=== PATIENT | female | born 1975 | race Caucasian/White ===

== ENCOUNTER → 2016-05-05 | Outpatient (REF) | payer BC | LOC: M SFHCLERA 09:28 | PROVIDERS: ATTEND Nurse Practitioner Family | DX: J06.9 Acute upper respiratory infection, unspecified (principal) ==

== ENCOUNTER → 2016-06-16 | Outpatient (REF) | payer BC | LOC: M SFHCLERA 12:42 | PROVIDERS: ATTEND Family Medicine | DX: R30.0 Dysuria (principal) ==

== ENCOUNTER → 2018-01-01 | Outpatient (CLI) | payer BC | LOC: M SLEEP HO 11:25 | DX: G47.33 Obstructive sleep apnea (adult) (pediatric) (principal) | CPT/HCPCS: G0399 ==

== ENCOUNTER → 2018-03-30 | Outpatient (REF) | payer BC ==
[2018-03-30 12:34] LABS: HEMATOCRIT 37.3 % (36.0-47.0)
[2018-03-30 12:50] LABS: PERCENT SATURATION 10.5 % (13.2-45.0)
== END ==
LOC: M LAB REF 12:08
PROVIDERS: ATTEND Nurse Practitioner Adult Health
DX: D64.9 Anemia, unspecified (principal)

== ENCOUNTER → 2019-06-06 | Outpatient (REF) | payer BC ==
[2019-06-06 17:49] LABS: HEMATOCRIT 36.2 % (36.0-47.0)
[2019-06-06 18:18] LABS: PERCENT SATURATION 9.7 % (13.2-45.0); PHOSPHORUS LEVEL 4.2 MG/DL (2.5-4.9)
== END ==
LOC: M LAB REF 16:40
PROVIDERS: ATTEND Nurse Practitioner Adult Health
DX: Z98.84 Bariatric surgery status (principal)

== ENCOUNTER → 2020-05-29 | Outpatient (REF) | payer BC ==
[2020-05-29 17:20] LABS: PERCENT SATURATION 2.1 % (13.2-45.0)
[2020-05-29 17:24] LABS: FOLATE 11.4 NG/ML
== END ==
LOC: M LAB REF 16:14
PROVIDERS: ATTEND Internal Medicine
DX: Z98.84 Bariatric surgery status (principal)

== ENCOUNTER → 2020-06-15 | Outpatient (REF) | payer BC ==
[2020-06-15 13:06] LABS: PERCENT SATURATION 2.7 % (13.2-45.0)
== END ==
LOC: M LAB REF 12:06
PROVIDERS: ATTEND Internal Medicine
DX: D50.9 Iron deficiency anemia, unspecified (principal)

== ENCOUNTER → 2022-02-04 | Outpatient (REF) | payer BC ==
[2022-02-04 14:10] LABS: FERRITIN 1.9 NG/ML (7.3-270.7)
[2022-02-04 14:15] LABS: PERCENT SATURATION 1.6 % (13.2-45.0)
== END ==
LOC: M LAB REF 12:15
PROVIDERS: ATTEND Internal Medicine
DX: D50.9 Iron deficiency anemia, unspecified (principal)

== ENCOUNTER 2022-02-16 08:07 | Outpatient (CLI) | payer BC ==
[~2022-02-16 08:07] MED LIST: IRON SUCROSE 25 MG in NS 23.75 ML IV ONE; IRON SUCROSE 475 MG in NS 250 ML IV ONE
[2022-02-16 08:10] VITALS: BP 139/70
[2022-02-16 10:00] VITALS: BP 143/67
[2022-02-16 11:00] VITALS: BP 151/77
[2022-02-16 12:00] VITALS: BP 157/80
[2022-02-16 13:00] VITALS: BP 169/72
== END 2022-02-16 14:45 | disposition home or self-care (01) ==
LOC: M INFU 08:07
PROVIDERS: ATTEND Internal Medicine
DX: D50.9 Iron deficiency anemia, unspecified (principal); Z91.040 Latex allergy status
CPT/HCPCS: 96365; 96366; J1756

== ENCOUNTER → 2022-03-17 | Outpatient (REF) | payer BC | LOC: M LAB REF 12:04 | PROVIDERS: ATTEND Internal Medicine | DX: D50.9 Iron deficiency anemia, unspecified (principal) ==

== ENCOUNTER → 2023-09-18 | Outpatient (REF) | payer BC ==
[~2023-09-18] MED LIST changes: -IRON SUCROSE 25 MG in NS 23.75 ML IV ONE; -IRON SUCROSE 475 MG in NS 250 ML IV ONE; +SYNT150T PO
[2023-09-18 18:47] LABS: PERCENT SATURATION 1.6 % (13.2-45.0)
[2023-09-18 18:49] LABS: FOLATE 20.1 NG/ML (>5.4)
== END ==
LOC: M LAB REF 16:57
PROVIDERS: ATTEND Internal Medicine
DX: D50.9 Iron deficiency anemia, unspecified (principal); Z98.84 Bariatric surgery status

== ENCOUNTER → 2023-09-21 | Outpatient (CLI) | payer BC | LOC: M LAB 16:55 | PROVIDERS: ATTEND Internal Medicine | DX: D50.9 Iron deficiency anemia, unspecified (principal) ==

== ENCOUNTER 2023-09-22 11:31 | Outpatient (CLI) | payer BC ==
[2023-09-22] MEDS ORDERED: diphenhydrAMINE 25MG CAP PO ONE (12:00)
[2023-09-22] MEDS ORDERED: ACETAMINOPHEN TAB 650MG DOSE (2X325MG) PO ONE (12:00)
[2023-09-22] MEDS ORDERED: diphenhydrAMINE 25MG CAP As Ordered ONE (12:08)
[2023-09-22] MEDS ORDERED: ACETAMINOPHEN TAB 650MG DOSE (2X325MG) As Ordered ONE (12:09)
== END 2023-09-22 16:15 ==
LOC: M INFU 11:31
PROVIDERS: ATTEND Internal Medicine
DX: D50.9 Iron deficiency anemia, unspecified (principal); Z91.040 Latex allergy status
CPT/HCPCS: 36430; P9016

== ENCOUNTER 2023-09-27 14:24 | Outpatient (CLI) | payer BC ==
[~2023-09-27] VITALS: Ht 170.2 cm; Wt 88.6 kg
[~2023-09-27 14:24] MED LIST changes: +ALBUTEROL SULFATE 2.5MG/0.5ML INH NEB SOLN INH PRN; +EPINEPHrine INJ 1 MG/ML 1ML AMP IM PRN; +diphenhydrAMINE 50MG/ML VIAL IV PRN; +methylPREDNISolone 125MG 2ML VIAL IV PRN
[2023-09-27] MEDS ORDERED: NS 1,000 ML IV SCH (14:30)
[2023-09-27 14:45] VITALS: BP 150/79; O2SAT 100
[2023-09-27] MEDS: FERRIC CARBOXYMALTOSE INJ 750 MG in NS 250 ML (>50kg) IV ONE (14:45)
[2023-09-27 15:58] VITALS: BP 172/79; O2SAT 98
== END 2023-09-27 16:00 ==
LOC: M INFU 14:24
PROVIDERS: ATTEND Internal Medicine
DX: D50.9 Iron deficiency anemia, unspecified (principal); Z91.040 Latex allergy status
CPT/HCPCS: 96365; J1439

== ENCOUNTER 2023-10-11 13:30 | Outpatient (CLI) | payer BC ==
[~2023-10-11] VITALS: Ht 170.2 cm; Wt 84.0 kg
[2023-10-11 13:30] VITALS: BP 143/67; O2SAT 98
[2023-10-11] MEDS: FERRIC CARBOXYMALTOSE INJ 750 MG in NS 250 ML (>50kg) IV ONE (13:43)
[2023-10-11] MEDS ORDERED: NS 1,000 ML IV SCH (14:30)
[2023-10-11 15:15] VITALS: BP 132/66; O2SAT 98
== END 2023-10-11 15:15 ==
LOC: M INFU 13:30
PROVIDERS: ATTEND Internal Medicine
DX: D50.9 Iron deficiency anemia, unspecified (principal); Z91.040 Latex allergy status
CPT/HCPCS: 96365; J1439

== ENCOUNTER → 2023-12-19 | Outpatient (REF) | payer BC ==
[~2023-12-19] MED LIST changes: -ALBUTEROL SULFATE 2.5MG/0.5ML INH NEB SOLN INH PRN; -EPINEPHrine INJ 1 MG/ML 1ML AMP IM PRN; -diphenhydrAMINE 50MG/ML VIAL IV PRN; -methylPREDNISolone 125MG 2ML VIAL IV PRN
[2023-12-19 18:58] LABS: PERCENT SATURATION 11.4 % (13.2-45.0)
== END ==
LOC: M LAB REF 17:52
PROVIDERS: ATTEND Internal Medicine
DX: D50.9 Iron deficiency anemia, unspecified (principal)

== ENCOUNTER → 2024-05-08 | Outpatient (REF) | payer BC ==
[2024-05-08 14:15] LABS: PERCENT SATURATION 3.2 % (13.2-45.0)
== END ==
LOC: M LAB REF 13:16
PROVIDERS: ATTEND Internal Medicine
DX: D50.9 Iron deficiency anemia, unspecified (principal)

== ENCOUNTER 2024-05-27 12:49 | Outpatient (CLI) | payer BC ==
[~2024-05-27] VITALS: Ht 168.9 cm; Wt 88.6 kg
[~2024-05-27 12:49] MED LIST changes: +ALBUTEROL SULFATE 2.5MG/0.5ML INH NEB SOLN INH PRN; +EPINEPHrine INJ 1 MG/ML 1ML AMP IM PRN; +diphenhydrAMINE 50MG/ML VIAL IV PRN; +methylPREDNISolone 125MG 2ML VIAL IV PRN
[2024-05-27 13:05] VITALS: BP 152/79; O2SAT 99
[2024-05-27] MEDS: FERRIC CARBOXYMALTOSE 750 MG (VIAL MATE) IN 100ML NS IV ONE (13:17)
[2024-05-27 14:50] VITALS: BP 166/81; O2SAT 97
== END 2024-05-27 13:55 ==
LOC: M INFU 12:49
PROVIDERS: ATTEND Internal Medicine
DX: D50.9 Iron deficiency anemia, unspecified (principal); Z91.040 Latex allergy status
CPT/HCPCS: 96365; J1439

== ENCOUNTER 2024-06-03 12:40 | Outpatient (CLI) | payer BC ==
[~2024-06-03] VITALS: Ht 167.6 cm; Wt 86.4 kg
[2024-06-03 12:40] VITALS: BP 150/83; O2SAT 97
[2024-06-03] MEDS: FERRIC CARBOXYMALTOSE 750 MG (VIAL MATE) IN 100ML NS IV ONE (12:55)
[2024-06-03] MEDS ORDERED: NS (Normal Saline) 0.9% 1,000 ML IV SCH (13:00)
[2024-06-03 13:05] VITALS: BP 132/88; O2SAT 98
[2024-06-03 13:40] VITALS: BP 146/78; O2SAT 98
== END 2024-06-03 13:40 ==
LOC: M INFU 12:40
PROVIDERS: ATTEND Internal Medicine
DX: D50.9 Iron deficiency anemia, unspecified (principal); Z91.040 Latex allergy status; Z88.8 Allergy status to other drugs, medicaments and biological substances
CPT/HCPCS: 96365; J1439

== ENCOUNTER → 2024-06-07 | Outpatient (REF) | payer BC ==
[~2024-06-07] MED LIST changes: -ALBUTEROL SULFATE 2.5MG/0.5ML INH NEB SOLN INH PRN; -EPINEPHrine INJ 1 MG/ML 1ML AMP IM PRN; -diphenhydrAMINE 50MG/ML VIAL IV PRN; -methylPREDNISolone 125MG 2ML VIAL IV PRN
== END ==
LOC: M LAB REF 13:12
PROVIDERS: ATTEND Surgery
DX: L72.12 Trichodermal cyst (principal)

== ENCOUNTER → 2025-02-21 | Outpatient (CLI) | payer BC ==
[~2025-02-21] MED LIST changes: +PRED20TA PO
[2025-02-21 11:50] LABS: PLATELET COUNT, AUTOMATED 420 10^3/uL (150-450)
== END ==
LOC: M PLALAB 08:39
PROVIDERS: ATTEND Obstetrics & Gynecology
DX: N93.9 Abnormal uterine and vaginal bleeding, unspecified (principal)

== ENCOUNTER → 2025-02-23 | Outpatient (CLI) | payer BC | LOC: M LAB 10:42 | PROVIDERS: ATTEND Family Medicine | DX: D64.9 Anemia, unspecified (principal) ==

== ENCOUNTER 2025-02-24 12:06 | Outpatient (CLI) | payer BC ==
[~2025-02-24] VITALS: Ht 170.2 cm; Wt 97.3 kg
[~2025-02-24 12:06] MED LIST changes: -PRED20TA PO
[2025-02-24 12:30] VITALS: BP 175/78; O2SAT 100
[2025-02-24 13:42] VITALS: BP 166/79; TEMP 97; O2SAT 99
[2025-02-24 15:34] VITALS: BP 153/76; TEMP 98.1; O2SAT 98
[2025-02-24 16:20] VITALS: BP 154/84; TEMP 98.4; O2SAT 99
[2025-02-24 16:55] VITALS: BP 150/78; O2SAT 100
[2025-02-24] MEDS ORDERED: PRED20TA PO (22:55)
== END 2025-02-24 16:55 | disposition home or self-care (01) ==
LOC: M INFU 12:06
PROVIDERS: ATTEND Internal Medicine
DX: D64.9 Anemia, unspecified (principal); Z91.040 Latex allergy status
CPT/HCPCS: 36430; P9016

== ENCOUNTER 2025-02-24 18:46 | Emergency (ER) | payer BC ==
[~2025-02-24] VITALS: Ht 170.2 cm; Wt 92.2 kg
[2025-02-24] MEDS: diphenhydrAMINE 50 MG/ML VIAL IV ONE (19:50)
[2025-02-24] MEDS: NS (Normal Saline) 0.9% 1,000 ML IV ONE (19:51)
[2025-02-24] MEDS: ACETAMINOPHEN *IV* 1,000 MG in IV 1 EA IV ONE (19:51)
[2025-02-24 20:20] LABS: C REACTIVE PROTEIN QUANTITATIV < 0.50 MG/DL (<1.0); PLATELET COUNT, AUTOMATED 302 10^3/uL (150-450)
[2025-02-24 20:21] LABS: CALCIUM LEVEL 8.7 MG/DL (8.5-10.1); CARBON DIOXIDE LEVEL 24 MMOL/L (20-31); CHLORIDE LEVEL 105 MMOL/L (98-107); CREATININE FOR GFR 0.75 MG/DL (0.55-1.30); GLOMERULAR FILTRATION RATE > 90.0 (>58); POTASSIUM SERUM 3.6 MMOL/L (3.5-5.1); SODIUM LEVEL 140 MMOL/L (136-145)
[2025-02-24 20:58] LABS: LYMPHOCYTES 4 % (16-44); METAMYELOCYTES 1 % (0-0); NEUTROPHILS 90 % (28-66)
[2025-02-24 21:00] LABS: PLATELET ESTIMATE NORMAL (NORMAL)
[2025-02-24 22:10] VITALS: TEMP 100.4
[2025-02-24] MEDS: IBUPROFEN 600 MG TAB PO ONE (22:52)
[2025-02-24 22:55] VITALS: O2SAT 97
[2025-02-24] MEDS ORDERED: PRED20TA PO (22:55)
[2025-02-24 22:56] VITALS: O2SAT 100
[2025-02-24 23:00] VITALS: BP 132/65
== END 2025-02-24 23:40 | disposition home or self-care (01) ==
LOC: M ED 18:46
DX: R06.02 Shortness of breath (principal); T80.92XA Unspecified transfusion reaction, initial encounter; F10.10 Alcohol abuse, uncomplicated; Z91.040 Latex allergy status; Z79.52 Long term (current) use of systemic steroids; Z79.899 Other long term (current) drug therapy
CPT/HCPCS: 71045; 80047; 80048; 85025; 85652; 86140; 86850; 86870; 86880; 86900; 86901; 87486; 87581; 87633; 87798; 93005; 93041; 94760; 96365; 96366; 96375; 99285; J0134; J1200; J2919

== ENCOUNTER → 2025-03-03 | Outpatient (REF) | payer BC ==
[~2025-03-03] MED LIST changes: +PRED20TA PO
[2025-03-03 12:49] LABS: PHOSPHORUS LEVEL 3.7 MG/DL (2.5-4.9)
[2025-03-03 12:50] LABS: IRON (FE) 22.0 UG/DL (50-170); PERCENT SATURATION 4.5 % (13.2-45.0)
[2025-03-03 12:52] LABS: VITAMIN B12 LEVEL 582.0 PG/ML (211-911)
[2025-03-03 12:54] LABS: TOTAL 25(OH) VITAMIN D 10.3 NG/ML (20.0-100.0)
[2025-03-06 00:47] LABS: VITAMIN A, RETINOL LEVEL 52 mcg/dL (38-98)
== END ==
LOC: M LAB REF 11:54
DX: Z98.84 Bariatric surgery status (principal); D50.9 Iron deficiency anemia, unspecified